=== PATIENT | male | born 1950 | race Caucasian/White ===

== ENCOUNTER 2017-12-12 18:49 | Emergency (ER) | payer BC ==
[2017-12-12 18:55] LABS: Glucose,Whole Blood 102 mg/dL (75-99)
--- NOTE | 2017-12-12 19:13 | ED ---
Recheck HPI - General Chief Complaint: Recheck/Abnormal Lab/Rx Stated Complaint: Hypoglycemia Time Seen by Provider: 12/12/17 18:50 Source: patient Mode of arrival: EMS Limitations: no limitations - History of Present Illness Initial Comments: This patient is a 67-year-old man who presents to be evaluated for hypoglycemia. The patient states that he has had type 1 diabetes for years and attempts to manage his blood sugar on the lower and of the spectrum. His hemoglobin A1c tends to run at 6.3 . The patient states that he was going out for dinner today and believes he took too much insulin related to the medial that he had. The patient was becoming a little bit confused. He states that this has happened multiple times in the past and he will take some oral glucose and tends to improve. Today he states that his gave him a glucagon shot which they also have at home for this type of contingency. His blood sugar did remain at the lower and and so she phoned EMS who established an IV and gave the patient additional glucose. The patient states that he is currently feeling back at his baseline. He is not having any sweating, tremulousness, headache, confusion or any the other symptoms that he usually gets with low blood sugar. MD Complaint: other (Hypoglycemia) -: minutes(s) - Related Data Home Medications Medication Instructions Recorded Confirmed Ezetimibe [Zetia] 10 mg PO DAILY 02/18/14 02/18/14 Insulin Glargine [Lantus] 30 unit SQ HS 02/18/14 02/18/14 Insulin Glulisine [Apidra] 0 unit SQ TID 02/18/14 02/18/14 Allergies Allergy/AdvReac Type Severity Reaction Status Date / Time No Known Allergies Allergy Verified 02/18/14 22:25 Review of Systems ROS Statement: Those systems with pertinent positive or pertinent negative responses have been documented in the HPI. ROS Other: All systems not noted in ROS Statement are negative. Constitutional: Denies: fever, chills Eyes: Denies: vision change Respiratory: Denies: cough, dyspnea Cardiovascular: Denies: chest pain, syncope Gastrointestinal: Denies: abdominal pain, vomiting, diarrhea Genitourinary: Denies: dysuria, frequency, hematuria Musculoskeletal: Denies: back pain Skin: Denies: rash Neurological: Denies: headache Past Medical History Past Medical History: Diabetes Mellitus History of Any Multi-Drug Resistant Organisms: None Reported Past Surgical History: No Surgical Hx Reported Past Psychological History: No Psychological Hx Reported Smoking Status: Never smoker Past Alcohol Use History: Daily Past Drug Use History: None Reported General Exam Limitations: no limitations General appearance: alert, in no apparent distress Head exam: Present: atraumatic, normocephalic Eye exam: Present: normal appearance. Absent: scleral icterus, conjunctival injection ENT exam: Present: normal oropharynx, mucous membranes moist Neck exam: Present: normal inspection Respiratory exam: Present: normal lung sounds bilaterally. Absent: respiratory distress, wheezes, rales, rhonchi, stridor Cardiovascular Exam: Present: regular rate, normal rhythm, systolic murmur ( Grade 1/6 systolic ejection murmur.). Absent: diastolic murmur, rubs, gallop GI/Abdominal exam: Present: soft. Absent: distended, tenderness, guarding, rebound, mass Extremities exam: Present: normal inspection, normal capillary refill Neurological exam: Present: alert Skin exam: Present: warm, dry, intact, normal color. Absent: rash Course Vital Signs 12/12/17 18:57 Temperature 97.4 F L Pulse Rate 87 Respiratory 18 Rate Blood Pressure 183/81 O2 Sat by Pulse 98 Oximetry Medical Decision Making - Medical Decision Making This patient is 67-year-old man with history of type 1 diabetes, who knows his condition quite well. He is back into the normal range of blood sugar and he requests to go home. The patient will be with his who is also quite experienced in managing his condition. I did discuss that our usual practice is to monitor patient's for a couple of hours to ensure that blood sugar does not become low again, and the patient is declining this. He is very familiar with the signs and symptoms of hypoglycemia, as is his , and he does have means of treatment at home. In addition he has taken oral glucose. Return parameters reviewed. - Lab Data Lab Results 12/12/17 Range/Units 18:53 POC Glucose (mg/dL) 102 H (75-99) mg/dL POC Glu [facility] Director ID Disposition Clinical Impression: Hypoglycemia due to type 1 diabetes mellitus Disposition: HOME SELF-CARE Condition: Good Instructions: Hypoglycemia in a Person with Diabetes (ED) Is patient prescribed a controlled substance at d/c from ED?: No Referrals: Emmett Carrillo MD [Primary Care Provider] - 1-2 days
[2017-12-12 19:45] VITALS: BP 174/76; PULSE 78; RESP 16; TEMP 98
== END 2017-12-12 19:44 | disposition home or self-care (01) ==
LOC: EC 18:49
DX: E10.649 Type 1 diabetes mellitus with hypoglycemia without coma (principal); Z79.4 Long term (current) use of insulin; Z79.899 Other long term (current) drug therapy
CPT/HCPCS: 36415; 99285

== ENCOUNTER → 2020-05-16 | Outpatient (CLI) | payer BC ==
--- NOTE | 2020-05-16 13:17 | US ---
EXAMINATION TYPE: US abdomen complete DATE OF EXAM: 05/16/2020 COMPARISON: NONE CLINICAL HISTORY: Z13.6 screening for cardiovascular disorders. AAA screening EXAM MEASUREMENTS: Liver Length: 12.8 cm Gallbladder Wall: 0.2 cm CBD: 0.8 cm Spleen: 8.6 cm Right Kidney: 11.3 x 4.7 x 4.7 cm Left Kidney: 10.5 x 5.8 x 5.1 cm Technical limitations due to large amount of overlying bowel content Pancreas: Obscured by bowel gas Liver: cystic area = 2.0 x 1.7 x 2.0cm Gallbladder: no evidence of stones Evidence for sonographic Velasquez's sign: no CBD: appears dilated measuring 0.8 cm. Normal less than 0.7 cm. Spleen: wnl Right Kidney: no evidence of hydronephrosis Left Kidney: cystic area anterior mid = 3.4 x 5.8 x 3.5cm Upper IVC: wnl Abd Aorta: wnl IMPRESSION: 1. Mild prominence of the common bile duct 2. Cyst on the anterior mid left kidney
== END | disposition home or self-care (01) ==
LOC: RADUSWWP 07:24
PROVIDERS: ATTEND Internal Medicine
DX: R93.2 Abnormal findings on diagnostic imaging of liver and biliary tract (principal); N28.1 Cyst of kidney, acquired; Z87.891 Personal history of nicotine dependence
CPT/HCPCS: 76700

== ENCOUNTER → 2020-05-28 | Outpatient (CLI) | payer BC | END | disposition home or self-care (01) | LOC: CPPFTMAIN 15:57 | PROVIDERS: ATTEND Internal Medicine | DX: R05 Cough (principal) | CPT/HCPCS: 94060; 94726; 94729 ==

== ENCOUNTER → 2022-04-30 | Outpatient (CLI) | payer BC ==
--- NOTE | 2022-05-01 09:05 | CA ---
Transthoracic Echo Report Name: Matt Rodriges Age: 71 Gender: M : 1950 Exam Date: 04/30/2022 08:17 Exam Location: [place] [facility] Ht (in): 72 Wt (lb): 198 Ordering Physician: Lan Hamilton DO Attending/Referring Phys: Apiarist Zeny Swanson RDCS Procedure CPT: Indications: R011 Cardiac Hx: Technical Quality: Good Contrast 1: Total Dose (mL): Contrast 2: Total Dose (mL): MEASUREMENTS (Male / Female) Normal Values 2D ECHO LV Diastolic Diameter PLAX 5.0 cm 4.2 - 5.9 / 3.9 - 5.3 cm LV Systolic Diameter PLAX 3.4 cm IVS Diastolic Thickness 1.1 cm 0.6 - 1.0 / 0.6 - 0.9 cm LVPW Diastolic Thickness 1.3 cm 0.6 - 1.0 / 0.6 - 0.9 cm LV Relative Wall Thickness 0.5 RV Internal Dim ED PLAX 3.7 cm LA Systolic Diameter LX 3.5 cm 3.0 - 4.0 / 2.7 - 3.8 cm LA Volume 67.2 cm??? 18 - 58 / 22 - 52 cm??? M-MODE Aortic Root Diameter MM 2.7 cm LA Systolic Diameter MM 3.7 cm LA Ao Ratio MM 1.3 MV E Point Septal Separation 0.3 cm AV Cusp Separation MM 1.7 cm DOPPLER MV Area PHT 3.6 cm??? Mitral E Point Velocity 74.0 cm/s Mitral A Point Velocity 90.2 cm/s Mitral E to A Ratio 0.8 MV Deceleration Time 212.5 ms MV E' Velocity 9.7 cm/s Mitral E to MV E' Ratio 7.6 TR Peak Velocity 270.9 cm/s TR Peak Gradient 29.4 mmHg Right Ventricular Systolic Press 33.6 mmHg FINDINGS Left Ventricle Left ventricular ejection fraction is estimated at 50-55%. Mildly increased left ventricular wall thickness. Right Ventricle Normal right ventricular size and function. Right Atrium Normal right atrial size. Left Atrium Mildly increased left atrial volume. Mitral Valve Structurally normal mitral valve. Mild mitral regurgitation. Aortic Valve Trileaflet aortic valve. Aortic valve sclerosis. Tricuspid Valve Structurally normal tricuspid valve. Pulmonic Valve Structurally normal pulmonic valve. Pericardium Normal pericardium. Aorta Normal size aortic root and proximal ascending aorta. CONCLUSIONS Normal left ventricular dimension and systolic function Aortic sclerosis Previewed by: Dr. Wilmar Sommers MD (Electronically Signed) Final Date: 01 May 2022 09:04
== END | disposition home or self-care (01) ==
LOC: RADECHMAIN 08:13
PROVIDERS: ATTEND Family Medicine
DX: R01.1 Cardiac murmur, unspecified (principal)
CPT/HCPCS: 93306

== ENCOUNTER → 2023-11-02 | Outpatient (CLI) | payer BC ==
--- NOTE | 2023-11-02 15:03 | US ---
EXAMINATION TYPE: US scrotum with doppler. Grayscale and color Doppler Duplex imaging performed of rosendo crane scrotum. 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 There is no evidence of testicular torsion. Left testicle: 0.2cm echogenic focus Presence of hydroceles: right - 3.3cm, left - 4.5cm Presence of varicoceles: no IMPRESSION: 1. Bilateral hydroceles noted. 2. Focal calcification left testicle.
== END | disposition home or self-care (01) ==
LOC: RADUSWWP 14:29
PROVIDERS: ATTEND Urology
DX: E29.0 Testicular hyperfunction (principal); N43.3 Hydrocele, unspecified; N50.89 Other specified disorders of the male genital organs
CPT/HCPCS: 76870; 93975

== ENCOUNTER → 2023-12-03 | Outpatient (CLI) | payer BC ==
[2023-12-03 10:54] LABS: ALT 37 U/L (10-49); AST 31 U/L (14-35); Albumin 4.2 g/dL (3.8-4.9); Albumin/Globulin Ratio 2.33 Ratio (1.60-3.17); Alkaline Phosphatase 81 U/L (41-126); Anion Gap 7.4; Blood Urea Nitrogen 21.3 mg/dL (9.0-27.0); Calcium 9.1 mg/dL (8.7-10.3); Carbon Dioxide 28.6 mmol/L (21.6-31.8); Chloride 105 mmol/L (96-109); Chol/HDL Ratio 2.65 Ratio; Globulin 1.8 g/dL (1.6-3.3); Glucose 141 mg/dL (70-110); LDL Cholesterol,Calculated 77.7 mg/dL (0.0-131.0); Potassium 4.6 mmol/L (3.5-5.5); Sodium 141 mmol/L (135-145); Total Bilirubin 0.7 mg/dL (0.3-1.2); VLDL Calculation 10.78 mg/dL (5.00-40.00)
[2023-12-03 18:23] LABS: Microalbumin Creatinine Ratio <8 mg/g Cr (0-30)
== END | disposition home or self-care (01) ==
LOC: LABWHC1 07:34
PROVIDERS: ATTEND Internal Medicine Endocrinology, Diabetes & Metabolism
DX: E10.649 Type 1 diabetes mellitus with hypoglycemia without coma (principal)
CPT/HCPCS: 36415; 80053; 80061; 82043; 82306; 82570; 84443

== ENCOUNTER → 2025-01-26 | Outpatient (CLI) | payer BC ==
[2025-01-26 10:24] LABS: Basophils # (A) 0.04 X 10*3/uL (0.00-0.10); Basophils % (A) 0.7 %; Eosinophils % (A) 3.7 %; HCT 44.3 % (39.6-50.0); HGB 14.7 g/dL (13.0-17.0); Lymphocytes # (A) 1.47 X 10*3/uL (0.90-5.00); Lymphocytes % (A) 27.4 %; MCH 32.1 pg (27.0-32.0); MCHC 33.2 g/dL (32.0-37.0); MCV 96.7 FL (80.0-97.0); Mean Platelet Volume 11.4 FL (9.5-12.2); Monocytes # (A) 0.63 X 10*3/uL (0.20-1.00); Monocytes % (A) 11.7 %; NRBC Per 100 WBC 0 X 10*3/uL (0.00-0.01); Neutrophils # (A) 3.02 X 10*3/uL (1.80-7.70); Neutrophils % (A) 56.3 %; Platelet Count 183 X 10*3/uL (140-440); RBC 4.58 X 10*6/uL (4.40-5.60); WBC 5.37 X 10*3/uL (4.50-10.00)
[2025-01-26 10:49] LABS: ALT 42 U/L (10-49); AST 34 U/L (14-35); Albumin 4.1 g/dL (3.8-4.9); Albumin/Globulin Ratio 2.05 Ratio (1.60-3.17); Alkaline Phosphatase 82 U/L (41-126); Blood Urea Nitrogen 21.5 mg/dL (9.0-27.0); Carbon Dioxide 27.4 mmol/L (21.6-31.8); Chloride 105 mmol/L (96-109); Chol/HDL Ratio 2.41 Ratio; Glucose 132 mg/dL (70-110); LDL Cholesterol,Calculated 68.8 mg/dL (0.0-131.0); Potassium 4.7 mmol/L (3.5-5.5); Sodium 141 mmol/L (135-145); Total Protein 6.1 g/dL (6.2-8.2); VLDL Calculation 10.68 mg/dL (5.00-40.00)
[2025-01-26 10:50] LABS: Prostate Specific Antigen 2.06 ng/mL (0.000-6.500)
== END | disposition home or self-care (01) ==
LOC: LABWHC1 07:54
PROVIDERS: ATTEND Family Medicine
DX: Z13.220 Encounter for screening for lipoid disorders (principal); Z12.5 Encounter for screening for malignant neoplasm of prostate; I10 Essential (primary) hypertension
CPT/HCPCS: 36415; 80053; 80061; 84153; 85025